=== PATIENT | male | born 1985 | race Caucasian/White ===

== ENCOUNTER 2016-08-15 14:56 | Emergency (ER) | payer OTHER, MEDICAID ==
--- NOTE | 2016-08-15 15:33 | EDPHY ---
H & P Time Seen by Provider: 08/15/16 15:30 HPI/ROS: HPI: 31-year-old male presents to emergency department with chief concern "I need a refill of my Geodon." Recently moved to [facility] from [place]. He is a paranoid schizophrenic who uses Geodon daily HS for the past 6 years. He is established with psychiatrist Dr. Simms in [place], however has not received a refill. Last dose was last night. No fever no chills, no extrapyramidal symptoms, no nausea or vomiting. ROS:10 point review of systems is negative other than as stated in HPI Past Medical/Surgical History: Paranoid schizophrenia Physical Exam: Vital signs stable, reviewed by me General: Awake, alert, calm, cooperative. No acute distress. Head: Normalocephalic. Atraumatic. EENT: PERRLA. EOMI. No pallor or injection. Anicteric. No nystagmus. Neck: Supple, nontender. Full range of motion Respiratory: Breathing unlabored. CV: Chest nontender, atraumatic. Neuro: Alert. Oriented x 3. Speech clear. Makes eye contact. Skin: Warm, dry, intact Extremities: Full range of motion in all 4 extremities. Mental status: Interactive, appropriate, well-groomed. Constitutional: Initial Vital Signs Temperature (C) 36.7 C 08/15/16 15:00 Heart Rate 119 H 08/15/16 15:00 Respiratory Rate 16 08/15/16 15:00 Blood Pressure 132/74 H 08/15/16 15:00 O2 Sat (%) 95 08/15/16 15:00 O2 Delivery Mode Room Air Home Medications: Medication Instructions Recorded Ziprasidone HCl [Geodon] 160 mg PO HS #60 capsule 08/15/16 Medical Decision Making ED Course/Re-evaluation: Have counseled this patient regarding the need to follow up with his psychiatrist Dr. Simms for establish meant of care and for ongoing refills of his Geodon. He verbalizes understanding and agrees to do so. He was given a 1 month refill. Departure - Departure Disposition: Home, Routine, Self-Care Clinical Impression: encounter for prescription refill Condition: Good Instructions: Ziprasidone (By mouth) Additional Instructions: Plan: Geodon 160 mg at bedtime nightly as prescribed Follow up with Dr. Ambrosio next week for recheck without fail--When you call to schedule appointment, please let the office know you are an "ER follow up" appointment" Referrals: TEJAL SIMMS [Primary Care Provider] - As per Instructions Prescriptions: Ziprasidone HCl [Geodon] 160 mg PO HS #60 capsule
[2016-08-15 15:53] VITALS: BP 118/74; PULSE 95; RESP 20; TEMP 97.9; O2SAT 94
== END 2016-08-15 15:53 | disposition home or self-care (01) ==
DX: Z76.0 Encounter for issue of repeat prescription (principal)